=== PATIENT | female | born 1970 | race Caucasian/White ===

== ENCOUNTER 2019-02-01 21:15 | Emergency (ER) | payer OTHER ==
[~2019-02-01] VITALS: Ht 152.4 cm; Wt 76.0 kg
[2019-02-01] MEDS ORDERED: IV NORMAL SALINE 1,000ML 1,000 ML IV ONE (22:45)
[2019-02-01] MEDS ORDERED: ORPHENADRINE ER 100 MG TABLET.ER PO ONE (22:45)
[2019-02-01] MEDS ORDERED: POTASSIUM CHLORIDE 20 MEQ TABLET.ER. PO ONE (22:45)
--- NOTE | 2019-02-01 23:07 | PHYS DOC ---
Past History Past Medical History: GERD, Other Additional Past Medical Histor: TMAP Smoking: Non-smoker Alcohol Use: Rarely Drug Use: None Adult General Chief Complaint Chief Complaint: LOWER EXTREMITY EDEMA HPI HPI Patient is a 48-year-old female presents with a four-day history of increasing left calf pain and swelling. Increased pain with walking up stairs. No relief with Robaxin or acetaminophen. She is unable to take nonsteroidal anti- inflammatory medications due to underlying health condition. She denies any trauma, no stasis, no known hypercoagulable state. No shortness of breath. She has not seen her primary care physician for this. She denies any numbness or tingling. Symptoms are moderate in intensity. [] Review of Systems Review of Systems Constitutional: Denies fever or chills [] Eyes: Denies change in visual acuity, redness, or eye pain [] HENT: Denies nasal congestion or sore throat [] Respiratory: Denies cough or shortness of breath [] Cardiovascular: No chest pain or palpitations[] GI: Denies abdominal pain, nausea, vomiting, bloody stools or diarrhea [] : Denies dysuria or hematuria [] Musculoskeletal: Denies back pain or, see history of present illness[] Integument: Denies rash or skin lesions [] Neurologic: Denies headache, focal weakness or sensory changes [] Endocrine: Denies polyuria or polydipsia [] All other systems were reviewed and found to be within normal limits, except as documented in this note. Current Medications Current Medications Current Medications Medications (Trade) Dose Ordered Sig/Néstor Start Time Stop Time Status Last Admin Dose Admin Orphenadrine Citrate (Norflex Er) 100 mg 1X ONCE 02/01/19 22:45 02/01/19 22:46 UNV Potassium Chloride (Klor-Con) 20 meq 1X ONCE 02/01/19 22:45 02/01/19 22:46 UNV Sodium Chloride 1,000 ml @ 1,000 mls/hr 1X ONCE 02/01/19 22:45 02/01/19 23:44 UNV Allergies Allergies Allergies Coded Allergies Type Severity Reaction Last Updated Verified aspirin Allergy Severe Unknown 02/01/19 Yes bupropion Allergy Severe Unknown 02/01/19 Yes ibuprofen Allergy Severe Swelling 02/01/19 Yes morphine Allergy Severe Unknown 02/01/19 Yes varenicline Allergy Severe Unknown 02/01/19 Yes Physical Exam Physical Exam Constitutional: Well developed, well nourished, no acute distress, non-toxic appearance. [] HENT: Normocephalic, atraumatic, bilateral external ears normal, oropharynx moist, no oral exudates, nose normal. [] Eyes: PERRLA, EOMI, conjunctiva normal, no discharge. [] Neck: Normal range of motion, no tenderness, supple, no stridor. [] Cardiovascular:Heart rate regular rhythm, no murmur [] Lungs & Thorax: Bilateral breath sounds clear to auscultation [] Abdomen: Bowel sounds normal, soft, no tenderness, no masses, no pulsatile masses. [] Skin: Warm, dry, no erythema, no rash. [] Back: No tenderness, no CVA tenderness. [] Extremities: Left calf has tenderness in the medial head of the gastrocnemius. No significant swelling is noted. Dorsalis pedis and posterior tibial pulses are present. No inguinal lymphadenopathy. No erythema. She is distally neurovascularly intact. No pain with axial loading of the long bones. The other 3 extremities show: No tenderness, no cyanosis, no clubbing, ROM intact, no edema. [] Neurologic: Alert and oriented X 3, normal motor function, normal sensory function, no focal deficits noted. [] Psychologic: Affect normal, judgement normal, mood normal. [] EKG EKG [] Radiology/Procedures Radiology/Procedures Ultrasound showed no evidence of DVT[] Course & Med Decision Making Course & Med Decision Making Pertinent Labs and Imaging studies reviewed. (See chart for details) Emergency department course: Patient arrived, was placed in bed, and tolerated exam well. She was given medicine for the discomfort. She was transported to and from [facility] without any complications. After the return of the laboratory and imaging findings, these were discussed with the patient and family who voiced understanding. No questions were answered. She was discharged in improved condition. Medical decision making: There is no evidence of rhabdomyolysis, no evidence of congestive heart failure, no evidence of deep vein thrombus, no evidence of significant electrolyte abnormality.[] Dragon Disclaimer Dragon Disclaimer This electronic medical record was generated, in whole or in part, using a voice recognition dictation system. Departure Departure: Impression: Primary Impression: Pain of left calf Disposition: 01 HOME, SELF-CARE Condition: IMPROVED Patient Instructions: Muscle Cramps Additional Instructions: Follow-up with your regular doctor in 2 days. Eat a potassium rich diet with foods such as bananas and green leaf he vegetables. Use the orphenadrine instead of the Robaxin. Apply warm compresses to the area 4 times a day for 15 minutes at a time, return to the emergency department if worsening pain or any other concerns. Scripts Orphenadrine Citrate (ORPHENADRINE CITRATE) 100 Mg Tablet.er 100 MG PO BID for BACK PAIN, #20 TAB.SR Prov: RIKKI CHAMBERLAIN DO 02/02/19 Potassium Chloride (KLOR-CON M20) 20 Meq Tab.er.prt 1 TAB PO DAILY for hypokalemia for 5 Days, #5 TAB 0 Refills Prov: RIKKI CHAMBERLAIN DO 02/02/19 RIKKI CHAMBERLAIN DO Feb 01, 2019 23:07
[2019-02-01 23:37] LABS: BASO # 0.1 x10^3/uL (0.0-0.2); BASO % 1 % (0-3); EOS # 0.2 x10^3/uL (0.0-0.7); EOS % 2 % (0-3); LYMPH # 3.3 x10^3/uL (1.0-4.8); LYMPH % 32 % (24-48); MEAN CORPUSCULAR HEMOGLOBIN 29 pg (25-35); MEAN CORPUSCULAR HGB CONC 33 g/dL (31-37); MEAN CORPUSCULAR VOLUME 88 fL (79-100); MONO # 0.6 x10^3/uL (0.0-1.1); MONO % 6 % (0-9); NEUT # 6.3 x10^3uL (1.8-7.7); NEUT % 59 % (31-73); PLATELET COUNT 290 x10^3/uL (140-400); RED CELL DISTRIBUTION WIDTH 13.2 % (11.5-14.5); WHITE BLOOD COUNT 10.6 x10^3/uL (4.0-11.0)
[2019-02-01 23:44] LABS: BILIRUBIN,URINE NEG (NEG); CLARITY,URINE CLEAR; COLOR,URINE YELLOW; GLUCOSE,URINE NEG (NEG); NITRITE,URINE NEG (NEG); UROBILINOGEN,URINE 0.2 mg/dL (0.2 mg/dL)
[2019-02-01 23:45] LABS: BACTERIA,URINE 0 /HPF (0-FEW); RBC,URINE 0 /HPF (0-2); SQUAMOUS EPITHELIAL CELL,UR MANY /LPF; WBC,URINE RARE /HPF (0-4)
[2019-02-01 23:53] LABS: ALBUMIN 3.9 g/dL (3.4-5.0); ALBUMIN/GLOBULIN RATIO 1.1 (1.0-1.7); CALCIUM 8.8 mg/dL (8.5-10.1); CREATININE 0.8 mg/dL (0.6-1.0); GFR 76.9; POTASSIUM 3.7 mmol/L (3.5-5.1); TOTAL BILIRUBIN 0.1 mg/dL (0.2-1.0); TOTAL PROTEIN 7.3 g/dL (6.4-8.2)
[2019-02-01 23:54] LABS: U PREG PATIENT NEGATIVE (NEG)
[2019-02-02] MEDS ORDERED: POTA20TA4 PO (00:25)
[2019-02-02] MEDS ORDERED: ORPH-16 PO (00:25)
--- NOTE | 2019-02-02 00:33 | RAD ---
Exam: VENOUS LOWER EXTREMITY LEFT Indication: Left lower leg pain Technique: Color-flow and pulsed wave duplex ultrasound with compression of venous structures of the left lower extremity. Comparison: None Available. Findings: Duplex ultrasound with compression of the deep venous structures of the left lower extremity from the common femoral vein through the popliteal vein is negative for DVT. The posterior tibial and peroneal veins are segmentally visualized and patent where seen. Normal venous waveforms and augmentation are noted throughout. Impression: No evidence for DVT in the left lower extremity. Electronically signed by: Adolfo Salguero MD (02/02/2019 12:30 AM) [facility]
[2019-02-02 00:45] VITALS: BP 139/59
== END 2019-02-02 00:45 | disposition home or self-care (01) ==
LOC: ER 21:15
DX: M79.662 Pain in left lower leg (principal); R22.42 Localized swelling, mass and lump, left lower limb; K21.9 Gastro-esophageal reflux disease without esophagitis; Z88.6 Allergy status to analgesic agent; Z88.5 Allergy status to narcotic agent; Z88.8 Allergy status to other drugs, medicaments and biological substances
CPT/HCPCS: 36415; 80053; 81001; 81025; 83735; 83880; 85025; 85610; 85730; 93971; 99285-25; J7030